=== PATIENT | male | born 1985 | race Caucasian/White ===

== ENCOUNTER 2018-12-21 18:00 | Inpatient (IN) | payer MEDICAID ==
[~2018-12-21] VITALS: Ht 188 cm; Wt 75.6 kg
[2018-12-21 18:45] VITALS: BP 124/70
[2018-12-21] MEDS ORDERED: HALOPERIDOL 5 MG TABLET PO PRN (18:45)
[2018-12-21] MEDS ORDERED: ZOLPIDEM TARTRATE 10 MG TABLET PO PRN (18:45)
[2018-12-21] MEDS ORDERED: MAG HYDROX/AL HYDROX/SIMETH ES 30 ML SUSPENSION UDCUP PO PRN (19:00)
[2018-12-21] MEDS ORDERED: NICOTINE 14 MG/24 HOUR PATCH TD PRN (19:00)
[2018-12-21] MEDS ORDERED: ALBUTEROL SULFATE HFA 90 MCG/PUFF 8 GM INHALER IH PRN (19:00)
[2018-12-21] MEDS ORDERED: DOCUSATE SODIUM 100 MG CAPSULE PO PRN (19:00)
[2018-12-21] MEDS ORDERED: CloNIDine HCL 0.1 MG TABLET PO PRN (19:00)
[2018-12-21] MEDS ORDERED: ACETAMINOPHEN 325 MG TABLET PO PRN (19:00)
[2018-12-21] MEDS ORDERED: LOPERAMIDE HCL 2 MG CAPSULE PO PRN (19:00)
[2018-12-21] MEDS ORDERED: ONDANSETRON HCL 4 MG TABLET PO PRN (19:00)
[2018-12-21] MEDS ORDERED: GuaiFENesin/D-METHORPHAN [SUGAR-FREE] 200-20MG/10 ML SYRUP UDCUP PO PRN (19:00)
[2018-12-21] MEDS ORDERED: PETROLATUM,WHITE 28 GM JELLY TP PRN (19:00)
[2018-12-21] MEDS ORDERED: IBUPROFEN 400 MG TABLET PO PRN (19:00)
[2018-12-21] MEDS ORDERED: MAGNESIUM HYDROXIDE SUSPENSION 30 ML UDCUP PO PRN (19:00)
[2018-12-21] MEDS: CEPHALEXIN MONOHYDRATE 500 MG CAPSULE PO SCH (20:40)
[2018-12-22 08:36] LABS: BASOPHILS % (AUTO) 1.1 % (0.0-2.0); EOSINOPHILS % (AUTO) 1.6 % (1.0-6.0); HEMATOCRIT 41.3 % (41-53); HEMOGLOBIN 13.8 g/dL (13.5-17.5); LYMPHOCYTES # (AUTO) 0.9 K/uL (1.0-4.8); LYMPHOCYTES % (AUTO) 21.6 % (22.0-44.0); MEAN CORPUSCULAR HEMOGLOBIN 29.4 pg (26.0-34.0); MEAN CORPUSCULAR HGB CONC 33.4 G/dL (31.0-37.0); MEAN CORPUSCULAR VOLUME 88 fL (80-100); MONOCYTES # (AUTO) 0.4 K/uL (0.1-1.0); MONOCYTES % (AUTO) 8.5 % (2.0-9.0); NEUTROPHILS # (AUTO) 2.9 K/uL (1.8-7.7); NEUTROPHILS % (AUTO) 67.2 % (40.0-70.0); PLATELET COUNT (AUTO) 280 K/uL (150-450); RED BLOOD CELL COUNT(AUTO) 4.68 MIL/uL (4.50-5.90); RED CELL DISTRIBUTION WIDTH 13.9 % (11.5-14.5)
[2018-12-22 08:55] VITALS: BP 135/78
[2018-12-22] MEDS: CEPHALEXIN MONOHYDRATE 500 MG CAPSULE PO SCH ×2 (09:13→16:51)
[2018-12-22 09:28] LABS: HEMOGLOBIN A1C 4.9 % (4.5-6.2)
[2018-12-22 09:32] LABS: ALANINE AMINOTRANSFERASE 34 U/L (12-78); ALBUMIN 3.5 g/dL (3.4-5.0); ALKALINE PHOSPHATASE 77 U/L (46-116); ANION GAP 11 mmol/L (8-16); ASPARTATE AMINOTRANSFERASE 23 U/L (15-37); BILIRUBIN,TOTAL 0.3 mg/dL (0.1-1.0); CALCIUM, TOTAL 8.8 mg/dL (8.8-10.5); CARBON DIOXIDE 26 mmol/L (22-29); CHLORIDE 101 mmol/L (98-107); CHOL/HDL RATIO 3.7 (4.2-7.3); CHOLESTEROL 176 mg/dL (131-200); CREATININE 0.83 mg/dL (0.60-1.30); GLOMERULAR FILTR. RATE CALC > 60 mL/min (>60); GLUCOSE,RANDOM 103 mg/dL (70-110); HDL CHOLESTEROL 48 mg/dL (40-60); LDL CHOL (CALC.) 114 mg/dL (0-130); POTASSIUM 3.9 mmol/L (3.5-5.1); SODIUM SERUM 138 mmol/L (136-145); THYROID STIMULATING HORMONE 0.38 uIU/mL (0.36-3.74); TRIGLYCERIDES 72 mg/dL (15-150); UREA NITROGEN, BLOOD 19 mg/dL (7-18)
[2018-12-22] MEDS: LORazepam 2 MG TABLET PO PRN (16:51)
[2018-12-22 17:00] VITALS: BP 125/84
[2018-12-23] MEDS ORDERED: OLANZapine 7.5 MG TABLET PO SCH (09:00)
[2018-12-23 09:03] VITALS: BP 131/77
[2018-12-23] MEDS: CEPHALEXIN MONOHYDRATE 500 MG CAPSULE PO SCH ×2 (09:03→16:29)
[2018-12-23] MEDS: DULoxetine HCL 60 MG CAPSULE PO SCH (09:03)
[2018-12-23] MEDS: LORazepam 2 MG TABLET PO PRN ×2 (09:03→16:30)
[2018-12-23 09:17] VITALS: BP 103/51
[2018-12-23 16:22] VITALS: BP 117/71
[2018-12-23] MEDS: OLANZapine 7.5 MG TABLET PO SCH (20:04)
[2018-12-24] MEDS: DULoxetine HCL 60 MG CAPSULE PO SCH (10:03)
[2018-12-24] MEDS: CEPHALEXIN MONOHYDRATE 500 MG CAPSULE PO SCH ×2 (10:03→16:37)
[2018-12-24 10:05] VITALS: BP 113/74
[2018-12-24] MEDS: LORazepam 2 MG TABLET PO PRN ×2 (11:27→18:33)
[2018-12-24] MEDS ORDERED: TraMADol HCL 50 MG TABLET PO PRN (15:30)
[2018-12-24 16:23] VITALS: BP 138/71
[2018-12-24] MEDS: OLANZapine 7.5 MG TABLET PO SCH (20:55)
[2018-12-25 06:41] VITALS: BP 114/71
[2018-12-25] MEDS: LORazepam 2 MG TABLET PO PRN ×3 (06:46→16:02)
[2018-12-25] MEDS: CEPHALEXIN MONOHYDRATE 500 MG CAPSULE PO SCH ×2 (08:51→16:02)
[2018-12-25] MEDS: DULoxetine HCL 60 MG CAPSULE PO SCH (08:51)
[2018-12-25 09:26] VITALS: BP 141/85
[2018-12-25 18:23] VITALS: BP 108/98
[2018-12-25] MEDS: OLANZapine 7.5 MG TABLET PO SCH (20:25)
[2018-12-26 08:00] VITALS: BP 136/83
[2018-12-26] MEDS: CEPHALEXIN MONOHYDRATE 500 MG CAPSULE PO SCH ×2 (08:36→16:08)
[2018-12-26] MEDS: DULoxetine HCL 60 MG CAPSULE PO SCH (08:36)
[2018-12-26] MEDS: LORazepam 2 MG TABLET PO PRN ×2 (10:36→16:07)
[2018-12-26] MEDS: TRIAMCINOLONE 0.1% 15 GM CREAM TP PRN ×2 (13:29→16:51)
[2018-12-26 17:21] VITALS: BP 122/90
[2018-12-26] MEDS: OLANZapine 7.5 MG TABLET PO SCH (20:25)
[2018-12-27] MEDS: LORazepam 2 MG TABLET PO PRN ×3 (07:58→17:28)
[2018-12-27] MEDS: CEPHALEXIN MONOHYDRATE 500 MG CAPSULE PO SCH ×2 (07:59→16:06)
[2018-12-27] MEDS: DULoxetine HCL 60 MG CAPSULE PO SCH (07:59)
[2018-12-27 08:30] VITALS: BP 113/60
[2018-12-27] MEDS: OLANZapine 7.5 MG TABLET PO SCH (20:48)
[2018-12-27 21:06] VITALS: BP 120/74
[2018-12-28] MEDS: LORazepam 2 MG TABLET PO PRN ×3 (06:41→16:49)
[2018-12-28 08:00] VITALS: BP 144/87
[2018-12-28] MEDS: DULoxetine HCL 60 MG CAPSULE PO SCH (09:26)
[2018-12-28] MEDS: CEPHALEXIN MONOHYDRATE 500 MG CAPSULE PO SCH ×2 (09:26→16:12)
[2018-12-28] MEDS: TRIAMCINOLONE 0.1% 15 GM CREAM TP PRN (09:27)
[2018-12-28 16:33] VITALS: BP 118/78
[2018-12-28] MEDS: OLANZapine 7.5 MG TABLET PO SCH (21:11)
[2018-12-29] MEDS: LORazepam 2 MG TABLET PO PRN ×3 (03:08→14:19)
[2018-12-29] MEDS: DULoxetine HCL 60 MG CAPSULE PO SCH (10:12)
[2018-12-29] MEDS: TRIAMCINOLONE 0.1% 15 GM CREAM TP PRN (10:13)
[2018-12-29 10:14] VITALS: BP 125/77
[2018-12-29] MEDS ORDERED: DULO60CA44 PO (17:35)
[2018-12-29] MEDS ORDERED: OLAN10TA3 PO (17:35)
== END 2018-12-29 18:20 | disposition home or self-care (01) | DRG 751 ==
LOC: 3EI 18:00
PROVIDERS: ADMIT Psychiatry & Neurology Psychiatry; ATTEND Psychiatry & Neurology Psychiatry
DX: F33.2 Major depressive disorder, recurrent severe without psychotic features (principal); G40.909 Epilepsy, unspecified, not intractable, without status epilepticus; R45.851 Suicidal ideations; D72.819 Decreased white blood cell count, unspecified; F19.90 Other psychoactive substance use, unspecified, uncomplicated; L40.9 Psoriasis, unspecified; Z59.0 Homelessness; M54.9 Dorsalgia, unspecified
CPT/HCPCS: 83036; 84443